=== PATIENT | male | born 1995 | race Caucasian/White ===

== ENCOUNTER 2020-08-01 19:04 | Emergency (ER) | payer MEDICAID ==
[~2020-08-01] VITALS: Ht 185.4 cm; Wt 82.6 kg
[2020-08-01 19:51] VITALS: Ht 185.4 cm; Wt 82.6 kg
[2020-08-01 21:10] LABS: AMPHETAMINE QUAL UR NONE DETECTED (See below)
[2020-08-01 21:10] LABS: BASOPHIL % 0.4 % (0.2-1.5); PLATELET COUNT 169 x10^3mcL (152-348); RED CELL DISTRIBUTION WIDTH 13.5 % (12.1-16.2)
[2020-08-01 21:36] LABS: CALCIUM 9.4 mg/dL (8.5-10.1); CARBON DIOXIDE 29.3 mmol/L (21-32); CHLORIDE SERUM 103 mmol/L (98-107); CREATININE SERUM 0.9 mg/dL (0.7-1.3); GFR1 > 60 mL/min; GLUCOSE SERUM 100 mg/dL (74-106); POTASSIUM SERUM 3.8 mmol/L (3.5-5.1); SODIUM SERUM 140 mmol/L (136-145)
[2020-08-01 21:38] LABS: T3 TOTAL 1.22 ng/mL
[2020-08-01 21:47] LABS: ALBUMIN 4.7 g/dL (3.4-5.0); ALKALINE PHOSPHATASE 53 U/L (46-116); ALT/SGPT 27 U/L (16-63); AST/SGOT 10 U/L (15-37); BILIRUBIN TOTAL 0.3 mg/dL (0.20-1.00); MAGNESIUM 2.1 mg/dL (1.8-2.4)
[2020-08-01 21:48] LABS: TOTAL PROTEIN, SERUM 8.4 g/dL (6.4-8.2)
[2020-08-01 22:30] LABS: FREE T4 0.99 ng/dL (0.76-1.46); T4(THYROXINE) 8.9 ug/dL (4.7-13.3)
[2020-08-01 23:38] VITALS: BP 131/90
== END 2020-08-01 23:38 | disposition home or self-care (01) ==
LOC: ED 19:04
PROVIDERS: Emergency Medicine
DX: R00.2 Palpitations (principal); R42 Dizziness and giddiness; Z88.8 Allergy status to other drugs, medicaments and biological substances
CPT/HCPCS: 84439